=== PATIENT | male | born 1990 | race Caucasian/White ===

== ENCOUNTER 2019-11-26 11:08 | Emergency (ER) | payer SELFPAY ==
[~2019-11-26] VITALS: Ht 188 cm; Wt 77.0 kg
[2019-11-26 11:50] VITALS: BP 128/81
[2019-11-26] MEDS ORDERED: BACTRIM DS1 TAB PO ×2 (11:52)
[2019-11-26] MEDS ORDERED: KEFLEX500 M1 PO ×2 (11:52)
== END 2019-11-26 12:00 | disposition home or self-care (01) | DRG 603 ==
LOC: ED 11:08
DX: L02.416 Cutaneous abscess of left lower limb (principal); L02.411 Cutaneous abscess of right axilla; L03.111 Cellulitis of right axilla; L02.415 Cutaneous abscess of right lower limb; L03.116 Cellulitis of left lower limb; L03.115 Cellulitis of right lower limb; F17.210 Nicotine dependence, cigarettes, uncomplicated

== ENCOUNTER 2019-11-29 20:12 | Emergency (ER) | payer SELFPAY ==
[~2019-11-29] VITALS: Ht 190.5 cm; Wt 81.8 kg
[~2019-11-29 20:12] MED LIST: BACTRIM DS1 TAB PO; KEFLEX500 M1 PO
[2019-11-29 21:06] LABS: HEMATOCRIT 43.8 % (39.0-50.0); HEMOGLOBIN 14.8 g/dl (14.0-18.0); IMMATURE GRANULOCYTES 0.2 % (0.0-5.0); MEAN CORPUSCULAR HGB 31.4 pG CALC (26.0-32.0); MEAN CORPUSCULAR HGB CONC 33.8 g/dL CAL (32.0-36.0); NEUT# 7.81 thou/uL (1.82-7.42); RED BLOOD COUNT 4.71 mill/uL (4.70-6.10); RED CELL DISTRI WIDTH 11.9 % (11.5-15.5)
[2019-11-29] MEDS ORDERED: BACTRIM DS1 TAB PO (21:06)
[2019-11-29] MEDS ORDERED: CEPHALEXIN500 MG PO (21:06)
[2019-11-29 21:12] LABS: ALBUMIN 4.2 g/dL (3.2-5.0); ALKALINE PHOSPHATASE 51 u/l (38-126); ANION GAP 11 (6-22 (CALC)); BILIRUBIN, TOTAL 1.1 mg/dL (0.0-1.4); BUN 12 mg/dL (9-20); BUN/CREATININE RATIO 12 (12-20 (CALC)); CARBON DIOXIDE 27 mmol/l (22-30); CHLORIDE 104 mmol/l (95-108); GFR > 60 ML/MIN (>=60 (CALC)); GFR FOR AFR.AMER. > 60 ML/MIN (>=60 (CALC)); POTASSIUM 3.8 mmol/l (3.5-5.1); SGOT/AST 37 u/l (17-59); SODIUM 138 mmol/l (137-146); TOTAL PROTEIN 6.5 g/dL (6.3-8.2)
[2019-11-29 21:15] VITALS: BP 137/78
== END 2019-11-29 21:15 | disposition home or self-care (01) | DRG 603 ==
LOC: ED 20:12
PROVIDERS: Emergency Medicine
PROC: 0H9KXZZ Drainage of Right Lower Leg Skin, External Approach (ICD-10-PCS; principal; 2019-11-29)
DX: L02.415 Cutaneous abscess of right lower limb (principal); L03.115 Cellulitis of right lower limb; L02.411 Cutaneous abscess of right axilla; F17.210 Nicotine dependence, cigarettes, uncomplicated; B95.62 Methicillin resistant Staphylococcus aureus infection as the cause of diseases classified elsewhere

== ENCOUNTER 2019-12-01 15:57 | Emergency (ER) | payer SELFPAY ==
[~2019-12-01] VITALS: Ht 190.5 cm; Wt 81.0 kg
[~2019-12-01 15:57] MED LIST changes: +CEPHALEXIN500 MG PO
[2019-12-01 16:19] VITALS: BP 129/65
== END 2019-12-01 16:30 | disposition home or self-care (01) | DRG 951 ==
LOC: ED 15:57
DX: Z48.01 Encounter for change or removal of surgical wound dressing (principal)

== ENCOUNTER 2020-12-30 01:02 | Emergency (ER) | payer SELFPAY ==
[2020-12-30 01:41] LABS: HEMATOCRIT 44.8 % (39.0-50.0); HEMOGLOBIN 15.4 g/dl (14.0-18.0); IMMATURE GRANULOCYTES 0.7 % (0.0-5.0); MEAN CELL VOLUME 92.8 fL CALC (80.0-100.0); MEAN CORPUSCULAR HGB 31.9 pG CALC (26.0-32.0); MEAN CORPUSCULAR HGB CONC 34.4 g/dL CAL (32.0-36.0); NEUT# 4.82 thou/uL (1.82-7.42); RED BLOOD COUNT 4.83 mill/uL (4.70-6.10); RED CELL DISTRI WIDTH 11.5 % (11.5-15.5)
[2020-12-30 02:02] LABS: ALBUMIN 4.1 g/dL (3.2-5.0); ALKALINE PHOSPHATASE 45 u/l (38-126); ANION GAP 15 (6-22 (CALC)); BUN 12 mg/dL (9-20); BUN/CREATININE RATIO 12 (12-20 (CALC)); CARBON DIOXIDE 28 mmol/l (22-30); CHLORIDE 105 mmol/l (95-108); ETHYL ALCOHOL 113 mg/dl (0-30); GFR > 60 ML/MIN (>=60 (CALC)); GFR FOR AFR.AMER. > 60 ML/MIN (>=60 (CALC)); POTASSIUM 3.6 mmol/l (3.5-5.1); SGOT/AST 41 u/l (17-59); SODIUM 144 mmol/l (137-146); TOTAL PROTEIN 6.6 g/dL (6.3-8.2)
[2020-12-30 02:03] VITALS: BP 131/70
[2020-12-30 02:13] LABS: MYOGLOBIN 137 ng/mL (0 - 121)
== END 2020-12-30 02:00 | disposition left against medical advice (07) | DRG 87 ==
LOC: ED 01:02
PROVIDERS: Family Medicine
DX: S06.9X1A Unspecified intracranial injury with loss of consciousness of 30 minutes or less, initial encounter (principal); S00.81XA Abrasion of other part of head, initial encounter; F10.129 Alcohol abuse with intoxication, unspecified; F17.200 Nicotine dependence, unspecified, uncomplicated; B19.20 Unspecified viral hepatitis C without hepatic coma; W10.9XXA Fall (on) (from) unspecified stairs and steps, initial encounter; Y92.009 Unspecified place in unspecified non-institutional (private) residence as the place of occurrence of the external cause; Z91.19 Patient's noncompliance with other medical treatment and regimen